=== PATIENT | female | born 1945 | race Caucasian/White ===

== ENCOUNTER 2022-10-01 10:25 | Inpatient (IN) | payer BC, OTHER ==
[~2022-10-01] VITALS: Ht 215.9 cm; Wt 68.9 kg
[2022-10-01 12:30] LABS: HEMATOCRIT. 35.1 % (36.0-48.0); HEMOGLOBIN. 11.5 g/dL (12.0-16.0); MEAN CORPUSCULAR HEMOGLOBIN 28.7 pg (28.0-32.0); MEAN PLATELET VOLUME 7.1 fl (7.4-10.4); PLATELET 509 x1000/uL (130-400); RED CELL DISTRIBUTION WIDTH 15.5 % (11.6-14.6)
[2022-10-01 12:37] LABS: CHLORIDE 100 mEq/L (98-107)
[2022-10-01 13:38] LABS: PLATELET ESTIMATE INCREASED
[2022-10-01 15:26] LABS: CLARITY URINE CLOUDY (CLEAR); COLOR URINE YELLOW (YELLOW); KETONES URINE TRACE (NEGATIVE); LEUKOCYTE ESTERASE URINE 3+ (NEGATIVE); NITRITE URINE POSITIVE (NEGATIVE); OCCULT BLOOD URINE 1+ (NEGATIVE); PH URINE 5.5 (4.5-8.0); PROTEIN URINE TRACE (NEGATIVE); SPECIFIC GRAVITY URINE 1.016 (1.005-1.030); UROBILINOGEN URINE 0.2 E.U./dL (0.2-1.0)
[2022-10-01] MEDS ORDERED: CEFTRIAXONE 1 G PREMIX 50 ML IV ONE (16:00)
[2022-10-01] MEDS ORDERED: METF-416 MT (21:41)
[2022-10-01] MEDS ORDERED: DONE-53 PO (21:48)
[2022-10-01] MEDS ORDERED: FERR325T6 PO (21:48)
[2022-10-01] MEDS ORDERED: INSU100V36 SQ (21:48)
[2022-10-01] MEDS ORDERED: EMPA10TA PO (21:48)
[2022-10-01] MEDS ORDERED: AMLO10TA80 PO (21:48)
[2022-10-01] MEDS ORDERED: METO-396 PO (21:48)
[2022-10-01] MEDS ORDERED: PIOG30TA70 PO (21:48)
[2022-10-01] MEDS ORDERED: SERT25TA74 PO (21:48)
[2022-10-01] MEDS ORDERED: LOSA50TA41 PO (21:48)
[2022-10-01] MEDS ORDERED: ATOR40TA70 PO (21:48)
[2022-10-01 22:00] VITALS: BP 179/71
[2022-10-01] MEDS ORDERED: POTASSIUM CHLORIDE 20MEQ TABLET SR PO SCH (22:30)
[2022-10-01] MEDS ORDERED: CLONIDINE 0.1MG TABLET PO PRN (22:30)
[2022-10-01] MEDS ORDERED: DEXTROSE 50% WATER 50ML SYRINGE IV PRN (22:30)
[2022-10-01] MEDS ORDERED: AMLODIPINE 10MG TABLET PO NR (22:53)
[2022-10-01] MEDS ORDERED: METOPROLOL TARTRATE 50MG TABLET PO NR (22:55)
[2022-10-01] MEDS: BLOOD SUGAR DIAGNOSTIC STRIP TEST SCH (23:43)
[2022-10-01] MEDS: INSULIN LISPRO 100 UNITS/ML SUBCUT SCH (23:43)
[2022-10-01 23:44] VITALS: BP 179/71
[2022-10-02] VITALS: BP 163/71
[2022-10-02] MEDS: DEXT 5%/0.45% NACL 1000ML 1,000 ML IV SCH ×2 (00:35→13:57)
[2022-10-02 04:00] VITALS: BP 140/62
[2022-10-02] MEDS: BLOOD SUGAR DIAGNOSTIC STRIP TEST SCH ×5 (04:00→20:00)
[2022-10-02] MEDS: INSULIN LISPRO 100 UNITS/ML SUBCUT SCH ×5 (04:00→21:34)
[2022-10-02 08:00] VITALS: BP 128/56
[2022-10-02] MEDS: ASPIRIN 81MG TABLET PO SCH (10:43)
[2022-10-02] MEDS: AMLODIPINE 10MG TABLET PO SCH (10:44)
[2022-10-02] MEDS: METOPROLOL TARTRATE 50MG TABLET PO SCH ×2 (10:44→21:33)
[2022-10-02] MEDS: ENOXAPARIN 40MG/0.4ML SYR SUBCUT SCH (10:45)
[2022-10-02 12:00] VITALS: BP 141/66
[2022-10-02 16:00] VITALS: BP 142/58
[2022-10-02 20:00] VITALS: BP 146/74
[2022-10-02] MEDS ORDERED: ATORVASTATIN CALCIUM 20MG TABLET PO SCH (21:00)
[2022-10-03] VITALS: BP 130/66
[2022-10-03 04:00] VITALS: BP 148/61
[2022-10-03] MEDS: INSULIN LISPRO 100 UNITS/ML SUBCUT SCH ×5 (04:00→18:31)
[2022-10-03] MEDS: BLOOD SUGAR DIAGNOSTIC STRIP TEST SCH ×5 (04:00→16:00)
[2022-10-03 08:00] VITALS: BP 148/74
[2022-10-03] MEDS: ASPIRIN 81MG TABLET PO SCH (08:38)
[2022-10-03] MEDS: AMLODIPINE 10MG TABLET PO SCH (08:39)
[2022-10-03] MEDS: METOPROLOL TARTRATE 50MG TABLET PO SCH (08:39)
[2022-10-03] MEDS: ENOXAPARIN 40MG/0.4ML SYR SUBCUT SCH (08:40)
[2022-10-03 12:00] VITALS: BP 138/63
[2022-10-03] MEDS ORDERED: LEVOFLOXACIN 250MG TABLET PO NR (14:15)
[2022-10-03 16:00] VITALS: BP 134/70
[2022-10-03 16:38] LABS: BASOPHILS % 1.1 % (0.0-2.0); EOSINOPHILS % 1.3 % (0.0-5.0); HEMATOCRIT. 36.3 % (36.0-48.0); HEMOGLOBIN. 11.8 g/dL (12.0-16.0); LYMPHOCYTES % 15.3 % (20.0-50.0); MEAN CORPUSCULAR HEMOGLOBIN 28.4 pg (28.0-32.0); MEAN CORPUSCULAR VOLUME 87.2 fL (81.0-99.0); MEAN PLATELET VOLUME 7.1 fl (7.4-10.4); MONOCYTES % 8.7 % (2.0-8.0); NEUTROPHILS % 73.6 % (40.0-76.0); PLATELET 522 x1000/uL (130-400); RED BLOOD CELL COUNT 4.17 mill/uL (4.2-5.4); RED CELL DISTRIBUTION WIDTH 15.9 % (11.6-14.6)
[2022-10-03 16:54] LABS: CHLORIDE 97 mEq/L (98-107)
== END 2022-10-03 19:47 | disposition home or self-care (01) | DRG 637 ==
LOC: ER 10:27 → ENRESERV 20:16 → 6EST 21:42
PROVIDERS: ADMIT Internal Medicine; ATTEND Internal Medicine
DX: E11.649 Type 2 diabetes mellitus with hypoglycemia without coma (principal); G93.41 Metabolic encephalopathy; N39.0 Urinary tract infection, site not specified; E78.5 Hyperlipidemia, unspecified; I10 Essential (primary) hypertension; Z79.4 Long term (current) use of insulin
CPT/HCPCS: 36415; 71045; 80048; 80053; 81003; 82962; 83036; 85025; 99285; J0696; J1650; J1815